=== PATIENT | male | born 1950 | race African-American/Black ===

== ENCOUNTER 2017-11-09 12:03 | Emergency (ER) | payer OTHER, MEDICARE ==
--- NOTE | 2017-11-09 13:30 | RAD ---
PA AND LATERAL OF THE CHEST: INDICATION: Body aches and cough. COMPARISON: Prior exam dated 06/24/15. FINDINGS: Healed deformity involving the left 7th and 8th rib fractures is similar. No acute airspace consolid ation, pleural effusion, or pneumothorax is evident. There is postsurgical change of a rotator cuff repair involving both shoulders that is stable to the comparison. No acute osseous abnormality is ev ident. IMPRESSION: No acute cardiopulmonary abnormality. POS: [facility]
[2017-11-09] MEDS ORDERED: Ibuprofen 800 MG TAB ONE (13:40)
== END 2017-11-09 13:45 | disposition home or self-care (01) ==
LOC: ERS 12:03
DX: J11.1 Influenza due to unidentified influenza virus with other respiratory manifestations (principal); J45.909 Unspecified asthma, uncomplicated; E78.5 Hyperlipidemia, unspecified; Z79.82 Long term (current) use of aspirin; Z79.899 Other long term (current) drug therapy
CPT/HCPCS: 71046; 93005; 94640; J7620

== ENCOUNTER 2019-02-06 07:41 | Emergency (ER) | payer OTHER, MEDICARE ==
[2019-02-06] MEDS ORDERED: Ketorolac Tromethamine 30 MG/ML VIAL ONE (08:25)
== END 2019-02-06 08:51 | disposition home or self-care (01) ==
LOC: ERS 07:41
DX: M54.41 Lumbago with sciatica, right side (principal)
CPT/HCPCS: 96372; J1885

== ENCOUNTER 2019-02-13 14:30 | Emergency (ER) | payer OTHER, MEDICARE ==
[2019-02-13] MEDS ORDERED: Ketorolac Tromethamine 30 MG/ML VIAL ONE (15:36)
--- NOTE | 2019-02-13 16:11 | CT ---
Exam: Lumbar spine CT scan without IV contrast: HISTORY: Right-sided chronic back pain and leg pain No evidence for acute fracture or dislocation. Disc bulging at L2-L3 with mild central canal and moderate lateral recess stenosis. Mild grade 1 anterolisthesis of L3 on L4 with moderate central canal and moderate to severe lateral r ecess stenosis bilaterally and severe bilateral foraminal stenosis with considerable facet arthrosis. Mild diffuse disc bulging at L4-L5 with mild bilateral foraminal stenosis. At L5-S1 there is mild foraminal stenosis. IMPRESSION: Multilevel variable severity canal, lateral recess, or foraminal stenosis most marked at L3-L4 with m ild grade 1 anterolisthesis. No acute fracture or dislocation.
== END 2019-02-13 18:39 | disposition home or self-care (01) ==
LOC: ERS 14:30
DX: M54.5 Low back pain (principal); I10 Essential (primary) hypertension; E78.00 Pure hypercholesterolemia, unspecified; J45.909 Unspecified asthma, uncomplicated
CPT/HCPCS: 72131; 96372; J1885

== ENCOUNTER 2019-02-25 07:44 | Outpatient (CLI) | payer OTHER, MEDICARE ==
--- NOTE | 2019-02-25 08:30 | MRI ---
MRI lumbar spine noncontrast: HISTORY: Degenerative disc disease of lumbar spine. Low back pain with leg weakness. Right leg sciatica. COMPARISON: None FINDINGS: Appropriate T1 marrow signal intensity of the lumbar vertebra. Lumbar spine vertebral body height is maintained. No fracture. 4.5 mm of anterolisthesis of L3 upon L4 No significant STIR hyperintensity to suggest vertebral body edema. Appropriate signal intensity paraspinal muscles. Appropriate signal intensity visualized solid organs Conus medullaris terminates at the upper aspect of L1 T12-L1:Adequate disc hydration. No significant central canal stenosis or neural foraminal narrowing L1-L2:Adequate disc hydration. No significant central canal stenosis or neural foraminal narrowing L2-L3:Mild loss of disc space height. Generalized disc bulge results in mild flattening the ventral t hecal sac. Overall mild central canal stenosis. Neural foramina are patent bilaterally. L3-L4:Mild loss of disc space height. Generalized disc bulge flattens the ventral thecal sac. There i s mild ligament flavum thickening and bilateral facet hypertrophy. Overall mild central canal stenosis. There is fluid in both facet joints. Mild bilateral neural foraminal narrowing. L4-L5:Adequate disc hydration. No significant central canal stenosis. Neural foramina are patent L5-S1:Adequate disc hydration. No significant central canal stenosis. There is mild to moderate bilat eral facet hypertrophy with small amount of fluid in both facet joints. Bilaterally, neural foramina are patent. Incidental 0.7 x 0.5 cm T2 hyperintensity posterior to the left facet joint at L4-L5 likely represent ing a nonsignificant paraspinal synovial cyst IMPRESSION: 1. Degenerative changes of lumbar spine as detailed above. There is no evidence of high-grade central canal stenosis or high-grade neural foraminal narrowing. 2. Multilevel facet hypertrophy with fluid in bilateral facet joints at L3-L4 and L5-S1.
== END 2019-02-25 07:45 | disposition home or self-care (01) ==
LOC: TBSIIMAG 07:44
PROVIDERS: ATTEND Internal Medicine
DX: M51.36 Other intervertebral disc degeneration, lumbar region (principal); M47.816 Spondylosis without myelopathy or radiculopathy, lumbar region
CPT/HCPCS: 72148